=== PATIENT | male | born 1990 | race Caucasian/White ===

== ENCOUNTER 2017-03-13 16:10 | Emergency (ER) | payer OTHER ==
[~2017-03-13] VITALS: Ht 180.3 cm; Wt 60.0 kg
[~2017-03-13 16:10] MED LIST: Z.0.NO CURRENT MEDS
[2017-03-13 16:31] VITALS: BP 133/72; PULSE 80; RESP 16; TEMP 98.2; O2SAT 96
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
[2017-03-13] MEDS ORDERED: SODIUM CHLORIDE 0.9% FLUSH 10 ML FLUSH IV FLUSH PRN (17:00)
[2017-03-13 17:18] LABS: AUTOMATED NEUTROPHIL # 4.7 TH/MM3 (1.8-7.7); BASOPHIL % 0.6 % (0.0-2.0); EOSINOPHIL % 0.4 % (0.0-4.0); HEMATOCRIT 42.2 % (39.0-51.0); HEMO FLAGS DIFF FINAL; LYMPH % 28.7 % (9.0-44.0); LYMPHOCYTE # 2.2 TH/MM3 (1.0-4.8); MEAN CELL VOLUME 96.6 FL (80.0-100.0); MEAN CORPUSCULAR HGB CONC 34.2 % (32.0-36.0); MONO % 9.6 % (0.0-8.0); NEUT % 60.7 % (16.0-70.0); PLATELET COUNT 209 TH/MM3 (150-450); RED BLOOD COUNT 4.37 MIL/MM3 (4.50-5.90); WHITE BLOOD COUNT 7.7 TH/MM3 (4.0-11.0)
[2017-03-13 17:26] LABS: ALT (GPT) 69 U/L (12-78); ANION GAP 7 MEQ/L (5-15); AST (GOT) 44 U/L (15-37); BICARBONATE 29.1 MEQ/L (21.0-32.0); BLOOD UREA NITROGEN 8 MG/DL (7-18); CHLORIDE 104 MEQ/L (98-107); GLOMERULAR FILTRATION RATE 118 ML/MIN (>89); POTASSIUM 3.7 MEQ/L (3.5-5.1); SODIUM (NA) 140 MEQ/L (136-145)
[2017-03-13 17:29] LABS: ALKALINE PHOSPHATASE 51 U/L (45-117); TOTAL BILIRUBIN ADULT 0.6 MG/DL (0.2-1.0)
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
[2017-03-13] MEDS ORDERED: KETOROLAC TROMETHAMINE 30 MG/ML (IVP) VIAL IV PUSH ONE (18:15)
[2017-03-13 19:02] LABS: BLOOD, URINE NEG (NEG); GLUCOSE,URINE NEG (NEG); KETONE, URINE 10 mg/dL (NEG); NITRITE,URINE NEG (NEG); URINE COLOR YELLOW (YELLW/STRAW)
[2017-03-13 19:03] LABS: COMMENT (UR) CULT NOT INDICATED; CULTURE IF INDICATED CULT NOT INDICATED
[2017-03-13 19:04] VITALS: O2SAT 100
[2017-03-13] MEDS ORDERED: IBUP800T23 PO (19:38)
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
== END 2017-03-13 20:13 | disposition home or self-care (01) ==
LOC: NEDAMB 16:10
DX: S16.1XXA Strain of muscle, fascia and tendon at neck level, initial encounter (principal); M54.5 Low back pain; R51 Headache; F17.210 Nicotine dependence, cigarettes, uncomplicated; V43.52XA Car driver injured in collision with other type car in traffic accident, initial encounter; Y93.89 Activity, other specified; Y92.410 Unspecified street and highway as the place of occurrence of the external cause; Y99.9 Unspecified external cause status
CPT/HCPCS: 70450; 72125; 72131; 80053; 81001; 85025; 96374; 99284; J1885